=== PATIENT | female | born 1960 | race Caucasian/White ===

== ENCOUNTER 2020-11-30 13:52 | Outpatient (REF) | payer OTHER, SELFPAY ==
--- NOTE | ~2020-11-30 | MM_ITS ---
EXAMINATION: MM SCREENING DIGITAL BREAST TOMOSYNTHESIS, BILATERAL CLINICAL INFORMATION: Screening. Asymptomatic. The lifetime risk of breast cancer based on the Tyrer-Cuzick Model is 7.2%. COMPARISON: Mammography: January 15, 2018 and studies dating back to March 24, 2013 TECHNIQUE: Digital breast tomosynthesis is performed in both the craniocaudal and mediolateral oblique views along with computer-aided detection (CAD). Synthesized 2D images are generated from the tomosynthesis. FINDINGS: The breasts are almost entirely fatty (ACR BI-RADS breast composition Category a). There are no significant masses, abnormal calcifications, or other abnormalities. MM/MM tomosynthesis screening BI IMPRESSION: There are no significant changes from prior study. ASSESSMENT: BI-RADS 1: Negative RECOMMENDATION: Routine annual mammography screening. This patient's information was entered into a reminder system with a target due date for their next mammogram.
== END 2020-11-30 13:53 | disposition home or self-care (01) ==
LOC: HO.MAMMO 13:52
PROVIDERS: PCP Internal Medicine; Visit Provider Internal Medicine
DX: Z12.31 Encounter for screening mammogram for malignant neoplasm of breast (principal)
CPT/HCPCS: 77063; 77067

== ENCOUNTER 2022-02-28 12:00 | Outpatient (RCR) | payer OTHER, SELFPAY | END 2022-04-03 10:49 | disposition home or self-care (01) | LOC: HO.PT 12:00 | PROVIDERS: PCP Internal Medicine; Visit Provider Internal Medicine | DX: M25.511 Pain in right shoulder (principal) | CPT/HCPCS: 97110; 97162 ==

== ENCOUNTER 2022-07-16 13:09 | Outpatient (REF) | payer OTHER, SELFPAY ==
--- NOTE | ~2022-07-16 | MM_ITS ---
EXAMINATION: MM SCREENING DIGITAL BREAST TOMOSYNTHESIS, BILATERAL CLINICAL INFORMATION: Screening. Asymptomatic. The lifetime risk of breast cancer based on the Tyrer-Cuzick Model is 8%. COMPARISON: Mammography: 11/30/2020, 01/15/2018, 02/17/2016 TECHNIQUE: Digital breast tomosynthesis is performed in both the craniocaudal and mediolateral oblique views along with computer-aided detection (CAD). Synthesized 2D images are generated from the tomosynthesis. Additional right MLO view is provided. FINDINGS: The breasts are almost entirely fatty (ACR BI-RADS breast composition Category a). There are no significant masses, abnormal calcifications, or other abnormalities. Background stromal and fibroglandular densities are stable. No developing density or architectural abnormality. The axilla are unremarkable. There is a dermal lesion again seen overlying the posterior upper outer right breast. MM/MM tomosynthesis screening BI IMPRESSION: No mammographic evidence of malignancy. ASSESSMENT: BI-RADS 2: Benign RECOMMENDATION: Routine annual mammography screening. This patient's information was entered into a reminder system with a target due date for their next mammogram.
== END 2022-07-16 13:10 | disposition home or self-care (01) ==
LOC: HO.MAMMO 13:09
PROVIDERS: Visit Provider Internal Medicine
DX: Z12.31 Encounter for screening mammogram for malignant neoplasm of breast (principal)
CPT/HCPCS: 77063; 77067

== ENCOUNTER 2022-11-30 07:22 | Outpatient (REF) | payer OTHER, SELFPAY ==
--- NOTE | ~2022-11-30 | XR_ITS ---
EXAMINATION: XR SHOULDER, RIGHT CLINICAL INFORMATION: Pain. COMPARISON: None available. TECHNIQUE: AP external rotation, Grashey, scapular Y, and axillary views of the right shoulder. FINDINGS: There is bony demineralization. The glenohumeral joint is intact and shows mild osteoarthritic change. The acromioclavicular and coracoclavicular intervals are normal. There is mild osteoarthritic change of the acromioclavicular joint. No fracture or dislocation is seen. There is cortical irregularity of the greater tuberosity of the proximal right humerus. No focal soft tissue calcification or foreign body is seen. There is no right pneumothorax. XR/XR shoulder RT min 2V IMPRESSION: 1. 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 2. There is cortical irregularity of the greater tuberosity of the proximal right humerus, which can be assessed with rotator cuff impingement. No max calcific tendinitis is noted.
== END 2022-11-30 07:23 | disposition home or self-care (01) ==
LOC: HO.HOSX 07:22
PROVIDERS: Visit Provider Physician Assistant
DX: M25.511 Pain in right shoulder (principal); M75.101 Unspecified rotator cuff tear or rupture of right shoulder, not specified as traumatic
CPT/HCPCS: 20610; 73030; J1040

== ENCOUNTER 2022-11-30 09:50 | Outpatient (AMB) | payer OTHER, SELFPAY ==
--- NOTE | 2022-11-30 09:55 | A.OFFVIS_ITS ---
Intake Vital Signs 11/30/22 09:59 Height 5 ft 6 in Weight 174 lb BMI 28.1 Intake Visit Reasons: [employer]- Chronic right shoulder pain Intake Note: Caleb, 62 year old right hand dominant female presents today as a new patient for a evaluation for her right shoulder pain. States pain started in April 2022 after picking up her twin grand children. States pain is triggered when picking up motion or reaching side ways and outward. States her ROM is good but at times painful. Seen with her PCP who Rx's P.T. Reports she attended P.T for 2 months with some improvement but con's to be limited when reaching sideways. Denies numbness, tingling or injections. Allergies lithium Allergy (Mild, Verified 11/30/22 10:03) hives quetiapine [From Seroquel] Allergy (Mild, Verified 11/30/22 10:05) Hypertension HPI [employer]- Chronic right shoulder pain HPI Details 62-year-old right hand dominant female who presents in the office today, as a new patient, for an evaluation of right shoulder pain. The patient reports he pain began in 04/2022 after picking up twin grandchildren. She claims her pain triggers with the lifting motion or reaching sideways or outward. She states her ROM is good, but at times painful. She confirms being seen by her PCP who referred her to physical therapy. She denies numbness or tingling in the right shoulder. Patient has been attending physical therapy for the past few months, with some improvement. She states she stopped going to physical therapy at [facility] after participating for 8 weeks. Patient has no history of cortisone injections. [facility] Social History (Updated 11/30/22 @ 10:05 by Bharati Chase [facility] Current occupational status: employed Current occupation: rt hand / crisis counselor Review of Systems Const All systems reviewed & are unremarkable except as noted in HPI and below Physical Exam Vital Signs: BMI result Body Mass Index 28.1 Const General: cooperative and no acute distress Orientation/consciousness: patient oriented x3 Resp Effort & Inspection: normal respiratory effort and able to speak in complete sentences Cardio Peripheral pulses: Peripheral pulses 2+ throughout Skin General skin exam: no rashes or lesions noted Neuro General: patient oriented x3 Extrem Other: Right shoulder: Normal to inspection. No ecchymosis, erythema, or edema. Full shoulder ROM in all planes. Negative cross-body reach. 3/5 strength with empty can. Negative drop arm. NVI. Office Procedures Joint Injection/Drain Joint Injection/Drain Primary Site: right shoulder Prep: site was prepped using aseptic technique, ethochloride spray was applied and injection warnings given Injected: 80 mg of, DepoMedrol, with 8 mL of (2% plain lido ) and in the subcromial space Approach Used: posterolateral Procedure: The patient tolerated the procedure well, but had some pain with the injection and there was some relief with the local anesthesia Coding 16623 - Large joint Procedure code (CPT) selection complete Results Reviewed Results Reviewed: 11/30/22 10:12 Lidocaine HCl 2 % MPF [Xylocaine 2 % MPF] 5 ml .ROUTE .STK-MED ONE methylPREDNISolone acetate [DEPO-MedroL] 80 mg .ROUTE .STK-MED ONE Assessment & Plan Assessment & Plan (1) Painful arc syndrome of right shoulder: Code(s): M75.101 - Unspecified rotator cuff tear or rupture of right shoulder, not specified as traumatic Plan Ms. Colbert is a 62-year-old right hand dominant female who presents in the office today, as a new patient, for an evaluation of right shoulder pain. The patient reports he pain began in 04/2022 after picking up twin grandchildren. She claims her pain triggers with the lifting motion or reaching sideways or outward. She states her ROM is good, but at times painful. She confirms being seen by her PCP who referred her to physical therapy. She denies numbness or tingling in the right shoulder. Patient has been attending physical therapy for the past few months, with some improvement. She states she stopped going to physical therapy at [facility] after participating for 8 weeks. Patient has no history of cortisone injections. The patient was offered a cortisone injection in the right shoulder with 80 mg of DepoMedrol. The patient was explained the risk, benefits, and alternatives to receiving this injection. After receiving consent for the injection, the patient had the procedure done while in office today. The patient tolerated the procedure well with no complications. I discussed the role of conservative treatment verses surgical treatment. She will call the office in 1-2 weeks to give me an update on how she is doing after the cortisone injectoin. She will follow up after the MRI is obtained, or sooner if needed. X-rays of the right shoulder which were obtained while in the office today and w ere reviewed by me, Carole Parson PA-C, revealed no evidence of actue fracture or dislocation. Mild arthritic changes. Orders: Orders XR shoulder RT min 2V Today M25.519 - Pain in unspecified shoulder Patient Instructions: Scribed for Carole Parson PA-C by Marizol Suarez medical affairs specialist, on 11/30/2022 at 9:52 am, EST. Coding Level of Care Code New Pt Level 3 (75873) Diagnoses Painful arc syndrome of right shoulder M75.101 CPT Codes Coding - 48293 Large joint: 73740 - Large joint ([id number])
[2022-11-30 09:59] VITALS: BMI 28.1
== END 2022-11-30 10:39 | disposition home or self-care (01) ==
PROVIDERS: PCP Internal Medicine; Visit Provider Physician Assistant
DX: M75.101 Unspecified rotator cuff tear or rupture of right shoulder, not specified as traumatic (principal)
CPT/HCPCS: 20610; 99204